=== PATIENT | female | born 1980 | race African-American/Black ===

== ENCOUNTER 2016-05-31 02:47 | Emergency (ER) | payer MEDICAID ==
[~2016-05-31] VITALS: Ht 154.9 cm; Wt 53.5 kg
[~2016-05-31 02:47] MED LIST: AZITHROMYCIN250 MG ORAL; BACTRIM DS TAB1 EAC1 ORAL; BACTRIM-DS1 EA ORAL; BENTYL20 M1 PO; HYDROCODON-ACE1 EA15 ORAL; IBUPROFEN600 MG ORAL; NITROFURANTOIN100 M2 ORAL; NKM; NORCO 5-325 TA1 EACH ORAL; PHENERGAN25 M1 ORAL; TYLENOL #21 EA ORAL; ZOFRAN ODT4 MG ORAL
[2016-05-31 02:55] VITALS: BP 115/68
[2016-05-31] MEDS ORDERED: NKM (02:55)
--- NOTE | 2016-05-31 03:14 | Emergency Room Report ---
History of Present Illness General Chief Complaint: Abdominal Pain Source: Patient Present Illness [facility] This is a 35-year-old female with no significant past medical history. She does have a history of abdominal pain. She presents with chief complaint abdominal pain. Onset for last 2 days. Sharp and crampy. 10 out of 10. Diffuse in nature. No radiation. No nausea no vomiting. Diarrhea today. Denies any other complaint. She has been here several times for the same. Workup including labs, ultrasound, CT scan were normal. No workup as far as endoscopy or colonoscopy. Allergies: Coded Allergies: No Known Allergies (Verified Allergy, Unknown, 11/25/08) Patient History Past Medical History: see triage record Past Surgical History: other Pertinent Family History: none Social History: Denies: smoking Last Menstrual Period: Mar Now: No Immunizations: other Reviewed Nursing Documentation: PMH: Agreed, PSxH: Agreed Nursing Documentation-PMH Past Medical History: No Stated History Hx Cardiac Problems: No Hx Hypertension: No Hx Pacemaker: No Hx Asthma: No Hx COPD: No Hx Diabetes: No Hx Cancer: No Hx Gastrointestinal Problems: No - Hx Dialysis: No Hx Neurological Problems: No Hx Cerebrovascular Accident: No Review of Systems Eye: Denies: blurred vision, eye pain ENT: Denies: ear pain, nose congestion, throat swelling Respiratory: Denies: cough, shortness of breath Cardiovascular: Denies: chest pain, palpitations Gastrointestinal: Reports: abdominal pain, Denies: diarrhea, nausea, vomiting Musculoskeletal: Denies: back pain, joint pain Skin: Denies: rash Neurological: Denies: headache, numbness Endocrine: Denies: increased thirst, increased urine Hematologic/Lymphatic: Denies: easy bruising All Other Systems: negative except mentioned in HPI Physical Exam Vital Signs Date Time Temp Pulse Resp B/P Pulse Ox O2 Delivery O2 Flow Rate FiO2 05/31/16 02:49 97.7 80 16 111/66 98 Room Air vitals normal Sp02 EP Interpretation: reviewed, normal General Appearance: well appearing, no apparent distress, alert Head: normocephalic, atraumatic Eyes: bilateral eye EOMI, bilateral eye PERRL ENT: hearing grossly normal, normal pharynx Neck: full range of motion, supple, no meningismus Respiratory: chest non-tender, lungs clear, normal breath sounds Cardiovascular #1: regular rate, rhythm, no murmur Gastrointestinal: normal bowel sounds, no mass, no organomegaly, no bruit, non- distended, abnormal bowel sounds - Hyperactive, tenderness - Diffuse Musculoskeletal: back normal, gait/station normal, normal range of motion Psychiatric: mood/affect normal Skin: warm/dry Medical Decision Making Diagnostic Impression: Primary Impression: Abdominal pain Qualified Codes: R10.84 - Generalized abdominal pain Additional Impression: Threatened in early ER Course Patient with denies abdominal pain. No evidence of obstruction or acute abdomen. She is being a lot. She is in early . Because of the pain will get ultrasound. Patient said that she has similar results with a urine test at home. Initially, labs and urine. She was negative but after 3 minutes it appeared he needed a positive. Blood test confirm . Will sign out the pelvic ultrasound to Dr. Brenner. No evidence of ectopic, we'll discharge home. Lab Results Impression labs unremarkable Last Vital Signs Date Time Temp Pulse Resp B/P Pulse Ox O2 Delivery O2 Flow Rate FiO2 05/31/16 02:49 97.7 80 16 111/66 98 Room Air Status: unchanged Disposition: HOME, SELF-CARE Condition: Stable Referrals: NON PHYSICIAN (PCP) LIZ JAY M.D. May 31, 2016 03:14
[2016-05-31] MEDS ORDERED: Ketorolac 30mg Inj IV ONE (03:15)
[2016-05-31 03:30] LABS: BASOPHILS % (AUTO) 0.9 % (0.0-2.0); EOSINOPHILS % (AUTO) 3.5 % (0.0-3.0); LYMPHOCYTES % (AUTO) 34.2 % (20.0-45.0); MEAN CORPUSCULAR HEMOGLOBIN 28.2 PG (27.0-31.0); MEAN CORPUSCULAR HGB CONC 32.3 G/DL (32.0-36.0); MEAN CORPUSCULAR VOLUME 87 FL (80-99); MONOCYTES % (AUTO) 7.5 % (1.0-10.0); NEUTROPHILS % (AUTO) 53.9 % (45.0-75.0); PLATELET COUNT 259 K/UL (150-450); RED BLOOD COUNT 4.16 M/UL (4.20-5.40); RED CELL DISTRIBUTION WIDTH 13.1 % (11.6-14.8); WHITE BLOOD COUNT 10.7 K/UL (4.8-10.8)
[2016-05-31 03:50] LABS: APPEARANCE,URINE CLEAR; KETONES,URINE NEGATIVE (NEGATIVE); PROTEIN,URINE NEGATIVE (NEGATIVE)
[2016-05-31 03:51] LABS: LEUKOCYTE ESTERASE ,URINE NEGATIVE (NEGATIVE); NITRITE,URINE NEGATIVE (NEGATIVE); UROBILINOGEN,URINE NORMAL MG/DL (0.0-1.0)
[2016-05-31 03:52] LABS: ALANINE AMINOTRANSFERASE 10 U/L (3-33); ALBUMIN/GLOBULIN RATIO 1.3 (1.0-2.7); ANION GAP 11 (5-15); ASPARTATE AMINO TRANSFERASE 14 U/L (5-40); CARBON DIOXIDE 24 mEQ/L (20-30); CHLORIDE 104 mEQ/L (98-107); CREATININE 0.7 mg/dL (0.5-0.9); GLOMERULAR FILTRATION RATE > 60 mL/min (>60); HEMOLYSIS 16; LIPASE 39 U/L (< 60); POTASSIUM 4.3 mEQ/L (3.4-4.9); SODIUM 139 mEQ/L (135-145); TOTAL PROTEIN 6.3 g/dL (6.6-8.7)
[2016-05-31 04:30] VITALS: BP 120/70
[2016-05-31] MEDS ORDERED: PRENATAL DHA200 MG PO (06:25)
[2016-05-31 06:30] VITALS: BP 121/70
--- NOTE | 2016-05-31 09:43 | Diagnostic Imaging Report ---
Indication: Pelvic pain Technique: Transabdominal and endovaginal pelvic ultrasound Comparison: None Findings: Uterus measures 7.9 x 2.5 cm. No intrauterine is identified. The endometrial echo complex measures 7 mm. Bilateral ovaries are not seen. There is no free pelvic fluid. Impression: No intrauterine identified. Differential considerations include a spontaneous versus early intrauterine below threshold level for sonographic visualization (with beta-hCG level of 75). In the absence of a documented intrauterine , ectopic cannot be excluded. Clinical/laboratory correlation recommended. Repeat imaging can be performed as clinically appropriate. Bilateral ovaries nonvisualized and clinical correlation recommended. No free pelvic fluid. Findings discussed with Dr. Brenner.
== END 2016-05-31 06:30 | disposition home or self-care (01) ==
LOC: EMR 03:05
DX: O20.0 Threatened abortion (principal); O26.891 Other specified pregnancy related conditions, first trimester; R10.84 Generalized abdominal pain; Z3A.01 Less than 8 weeks gestation of pregnancy
CPT/HCPCS: 36415; 76815; 80053; 80300; 81003; 81025; 83690; 84702; 85025; 96360; 96374; 99284; J1885

== ENCOUNTER 2016-08-09 19:56 | Emergency (ER) | payer MEDICAID ==
[~2016-08-09] VITALS: Ht 157.5 cm; Wt 61.7 kg
[~2016-08-09 19:56] MED LIST changes: +PRENATAL DHA200 MG PO
--- NOTE | 2016-08-09 20:09 | Emergency Room Report ---
History of Present Illness General Chief Complaint: Chest Pain Source: Patient Present Illness HPI 35YOF walk-in with substernal non-radiating chest pain for 8 hours. Pain is pleuritic, worse with deep inspiration. No pain at rest. No assoc fever/ chills, cough, URI symptoms, sick contacts, leg pain/swelling. Non smoker. No drugs. No history of DVT/PE in self or family members. Allergies: Coded Allergies: No Known Allergies (Verified Allergy, Unknown, 11/25/08) Patient History Past Medical History: none Past Surgical History: none Pertinent Family History: none Social History: Denies: alcohol use, drug use, smoking Last Menstrual Period: 04/23/2016 Now: Yes Immunizations: UTD Reviewed Nursing Documentation: PMH: Agreed, PSxH: Agreed Nursing Documentation-PMH Past Medical History: No Stated History Hx Cardiac Problems: No Hx Hypertension: No Hx Pacemaker: No Hx Asthma: No Hx COPD: No Hx Diabetes: No Hx Cancer: No Hx Gastrointestinal Problems: No - Hx Dialysis: No Hx Neurological Problems: No Hx Cerebrovascular Accident: No Review of Systems All Other Systems: negative except mentioned in HPI Physical Exam Vital Signs Date Time Temp Pulse Resp B/P Pulse Ox O2 Delivery O2 Flow Rate FiO2 08/09/16 19:58 98.1 88 14 93/67 100 Room Air Sp02 EP Interpretation: reviewed, abnormal, other - Mild hypotensive likely baseline for pregnancty General Appearance: normal inspection, well appearing, alert, GCS 15, non-toxic , mild distress Head: normocephalic, atraumatic Eyes: bilateral eye EOMI, bilateral eye PERRL ENT: normal ENT inspection, hearing grossly normal, normal voice Neck: normal inspection, full range of motion, supple, no bony tend Respiratory: normal inspection, lungs clear, normal breath sounds, no respiratory distress, no retraction, no accessory muscle use, no wheezing, speaking full sentences, other - chest pain NOT reproducible Cardiovascular #1: regular rate, rhythm, no edema Gastrointestinal: normal inspection, normal bowel sounds, non tender, soft, no guarding, no hernia, other - gravid uterus Genitourinary: no CVA tenderness Musculoskeletal: normal inspection, back normal, normal range of motion, Loreto' s Sign negative Neurologic: normal inspection, alert, oriented x3, responsive, ruby engineer III-XII nml as tested, motor strength/tone normal, speech normal Psychiatric: normal inspection, judgement/insight normal, mood/affect normal Skin: normal inspection, normal color, no rash Lymphatic: normal inspection Medical Decision Making Diagnostic Impression: Primary Impression: Chest pain Qualified Codes: R07.1 - Chest pain on breathing ER Course 35YOF 16 weeks with acute pleuritic chest pain. Not tachycardic or hypoxic. Afebrile. Mild hypotension likely normal in . Labs: Mild leuks 11k - likely leukocytosis of . H&H stable. Troponin 0. Urine preg +. No UTI. ECG is sinus arrythmia. No ischemia. No signs of pericarditis. No [id number] Pleuritic chest pain - Unlikely infectious in nature given worse with deep breathing. No associated cough, fever/chills. - Acute in nature raises concern for PE. significantly increases risk of PE. VQ scan unable to be done here for the weekend. We cannot wait til Thursday given high risk of PE in females A negative dopper sono of lower extremities does NOT rule out PE Per review of [employer] and literature, VQ scan may be indeterminate and multiple international societies recommend CTA to rule out PE I had a long discussion with patient on need to do CTA. I answered all her questions. She understands potential risk of radiation to fetus and that it is indeterminate but understands importance of ruling out PE in her. She signed written consent form and RN placed in her chart. CTA negative for PE, other acute pathology In additional HPI, patient endorses "eating a lot," "some bloating" she thought was gas. Was given IV pepcid with some improvement in symptoms. She also felt that pain improved s/p Tylenol Pepcid has a B warning per [employer]. Will do short trial of Pepcid at home. She has OB appointment in 2 days on ThursdayAugust 11. Will discuss with her OB as well. DC home EKG Diagnostic Results Rate: normal, other - sinus arrythmia Rhythm: NSR ST Segments: no acute changes ASA given to the pt in ED: No Last Vital Signs Date Time Temp Pulse Resp B/P Pulse Ox O2 Delivery O2 Flow Rate FiO2 08/09/16 19:58 98.1 88 14 93/67 100 Room Air Status: improved Disposition: HOME, SELF-CARE COLETTE VIVEROS M.D. August 09, 2016 20:09
[2016-08-09 20:23] LABS: BASOPHILS % (AUTO) 0.8 % (0.0-2.0); EOSINOPHILS % (AUTO) 3.6 % (0.0-3.0); MEAN CORPUSCULAR HEMOGLOBIN 30.4 PG (27.0-31.0); MEAN CORPUSCULAR HGB CONC 33.3 G/DL (32.0-36.0); MEAN CORPUSCULAR VOLUME 91 FL (80-99); MEAN PLATELET VOLUME 6.5 FL (6.5-10.1); MONOCYTES % (AUTO) 7.1 % (1.0-10.0); NEUTROPHILS % (AUTO) 60.5 % (45.0-75.0); PLATELET COUNT 250 K/UL (150-450); RED BLOOD COUNT 4.09 M/UL (4.20-5.40); RED CELL DISTRIBUTION WIDTH 13.7 % (11.6-14.8); WHITE BLOOD COUNT 11.9 K/UL (4.8-10.8)
[2016-08-09 20:48] LABS: ALANINE AMINOTRANSFERASE 11 U/L (3-33); ALBUMIN/GLOBULIN RATIO 1.1 (1.0-2.7); ANION GAP 14 (5-15); ASPARTATE AMINO TRANSFERASE 15 U/L (5-40); CARBON DIOXIDE 24 mEQ/L (20-30); CHLORIDE 96 mEQ/L (98-107); CREATININE 0.6 mg/dL (0.5-0.9); GLOMERULAR FILTRATION RATE > 60 mL/min (>60); HEMOLYSIS 0; POTASSIUM 3.8 mEQ/L (3.4-4.9); SODIUM 134 mEQ/L (135-145); TROPONIN I < 0.30 ng/mL (<=0.30)
[2016-08-09 20:58] LABS: CKMB 1.7 ng/mL (< 3.8)
[2016-08-09 21:15] LABS: APPEARANCE,URINE CLEAR; KETONES,URINE NEGATIVE (NEGATIVE); LEUKOCYTE ESTERASE ,URINE NEGATIVE (NEGATIVE); NITRITE,URINE NEGATIVE (NEGATIVE); PH,URINE 7 (4.5-8.0); PROTEIN,URINE NEGATIVE (NEGATIVE); UROBILINOGEN,URINE NORMAL MG/DL (0.0-1.0)
[2016-08-09 21:32] VITALS: BP 94/70
[2016-08-09] MEDS ORDERED: Famotidine 20 MG/ 2ML VIAL IVP ONE (21:45)
[2016-08-09] MEDS ORDERED: PEPCID20 MG ORAL (21:57)
[2016-08-09 22:02] VITALS: BP 94/70
--- NOTE | 2016-08-10 10:20 | Diagnostic Imaging Report ---
Indication: Shortness of breath Technique: CT pulmonary angiogram performed utilizing automated exposure control with intravenous contrast. Axial, sagittal and coronal reconstructions were obtained. 3-D volumetric reconstructions were also performed. CT dose: Total DLP 647 mGycm; CTDI vol 22.9 mGy Comparison: None Findings: There is no central pulmonary embolus or aortic dissection. The heart size is normal. No pericardial or pleural effusions are identified. There is mild dependent atelectasis. No consolidation is identified. There is no bulky adenopathy. The osseous structures demonstrate no acute abnormality. Impression: No pulmonary embolus. Mild dependent atelectasis. The CT scanner at [facility] is accredited by the [employer] and the scans are performed using protocols designed to limit radiation exposure to as low as reasonably achievable to attain images of sufficient resolution adequate for diagnostic evaluation.
== END 2016-08-09 22:05 | disposition home or self-care (01) ==
LOC: EMR 20:10 → EDBEDREQ 20:11 → EMR 22:05
DX: R07.1 Chest pain on breathing (principal); O26.92 Pregnancy related conditions, unspecified, second trimester; Z3A.16 16 weeks gestation of pregnancy; I49.9 Cardiac arrhythmia, unspecified
CPT/HCPCS: 36415; 71275; 80053; 80300; 81003; 81025; 82550; 82553; 84484; 85025; 85379; 93005; 96374; 99284; Q9967; S0028